=== PATIENT | male | born 1970 ===

== ENCOUNTER 2021-06-17 20:22 | Emergency (ER) | payer SELFPAY ==
[2021-06-17 21:29] VITALS: BP 138/84; PULSE 92; RESP 18; TEMP 36.6; O2SAT 99
--- NOTE | 2021-06-17 23:11 | PC.NURSE ---
Pt leaving ED without seeing provider. Pt ambulates with steady gait.
== END 2021-06-17 23:12 | disposition left against medical advice (07) ==
LOC: ANHED 23:27
DX: R51.9 Headache, unspecified (principal)
CPT/HCPCS: 99199